=== PATIENT | female | born 1970 | race Caucasian/White ===

== ENCOUNTER 2019-11-08 09:50 | Emergency (ER) | payer SELFPAY ==
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
--- NOTE | 2019-11-08 11:15 | RAD ---
EXAM: 4 views of the left knee HISTORY: Knee pain COMPARISON: None FINDINGS: No knee effusion is seen. There is no evidence of acute fracture or dislocation. Mild danielle lofemoral and medial femorotibial compartment degenerative changes are seen. No soft tissue swelling is present. IMPRESSION: Mild left knee osteoarthritis
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
[2019-11-08] MEDS ORDERED: Fentanyl 100 MCG/2 ML VIAL ONE (11:52)
== END 2019-11-08 13:14 | disposition home or self-care (01) ==
LOC: ERS 09:50
DX: M25.552 Pain in left hip (principal); M25.562 Pain in left knee; J44.9 Chronic obstructive pulmonary disease, unspecified; I10 Essential (primary) hypertension; I48.91 Unspecified atrial fibrillation; F41.9 Anxiety disorder, unspecified; F17.210 Nicotine dependence, cigarettes, uncomplicated; Z79.899 Other long term (current) drug therapy; V89.2XXA Person injured in unspecified motor-vehicle accident, traffic, initial encounter
CPT/HCPCS: 71045; 72170; 96374; J3010